=== PATIENT | female | born 1970 | race African-American/Black ===

== ENCOUNTER 2020-07-18 16:16 | Outpatient (REF) | payer MEDICARE, MEDICAID, SELFPAY ==
--- NOTE | 2020-07-18 16:20 | CT_ITS ---
EXAMINATION: CT MAXILLOFACIAL WITHOUT CONTRAST CLINICAL INFORMATION: Sinonasal polyp. COMPARISON: CT head from 03/18/2020. TECHNIQUE: Multidetector helical imaging was performed in the axial plane with generation of coronal and sagittal reformatted images. This CT examination was performed using dose optimization techniques as appropriate, variously including the following: *Automated exposure control. *Adjustment of mA and/or kV according to patient size (this includes techniques or standardized protocols for targeted exams where dose is matched to indication/reason for exam; i.e. extremities or head). *Use of iterative reconstruction technique. DLP: 80 mGy-cm FINDINGS: FRONTAL SINUSES AND DRAINAGE PATHWAYS: The frontal sinuses are clear. The frontoethmoidal recesses are patent. MAXILLARY SINUSES AND DRAINAGE PATHWAYS: Mild mucosal thickening of the paranasal sinuses. Small mucous retention cyst within the right maxillary sinus. The maxillary ostia and infundibula are patent. ETHMOID SINUSES: The ethmoid air cells are clear. The ethmoid roofs appear symmetric and intact. SPHENOID SINUS AND DRAINAGE PATHWAYS: The sphenoid sinus is clear. The sphenoethmoidal recesses are patent. NASAL PASSAGE: The nasal passages are clear. Mild leftward nasal septal deviation with slight spurring. ADDITIONAL RELEVANT FINDINGS: The lamina papyracea are intact. No demonstrated abnormalities of the orbits. The carotid canals are normally covered by bone. No significant maxillary periapical disease. Mild left worse than right degenerative arthropathy of the temporomandibular joints. The mastoid air cells and middle ear cavities remain well aerated. Limited evaluation of the intracranial structures without significant abnormalities. CT/CT sinus wo con IMPRESSION: Mild sinonasal mucosal disease. Mild leftward nasal septal deviation.
== END 2020-07-18 16:17 | disposition home or self-care (01) ==
LOC: HO.CT 16:16
PROVIDERS: PCP Hospitalist; Visit Provider Otolaryngology
DX: J33.9 Nasal polyp, unspecified (principal)
CPT/HCPCS: 70486

== ENCOUNTER 2021-03-20 00:35 | Emergency (ER) | payer MEDICARE, MEDICAID, SELFPAY | END 2021-03-20 01:29 | disposition left against medical advice (07) | PROVIDERS: Emergency Provider Emergency Medicine; PCP Hospitalist | DX: R42 Dizziness and giddiness (principal) ==

== ENCOUNTER 2021-03-24 19:16 | Emergency (ER) | payer MEDICARE, MEDICAID, SELFPAY ==
[2021-03-24 19:25] VITALS: BP 151/90; PULSE 90; RESP 16; O2SAT 100; BMI 25.7
--- NOTE | 2021-03-24 20:07 | PC.NURSE ---
PT INTERRUPTED RN WHILE TRIAGING ANOTHER PATIENT, SAID SHE WAS GOING TO LEAVE. CHARGE NURSE CALLED TO SPEAK TO PATIENT. PT BROUGHT TO TRIAGE TO REASSESS. NO CHANGES.
[2021-03-24 20:08] VITALS: BP 175/102; PULSE 90; RESP 16; O2SAT 100
--- NOTE | 2021-03-24 20:19 | PC.NURSE ---
SPOKE TO PATIENT AND FAMILY AT 20:00, PT MOTHER INSISTING THAT PT NEEDED TO COME BACK TO BE SEEN. COLEEN Gabriel DID UPDATED SET OF VITALS, AND NEURO CHECKS ALL WERE WNL. I INFORMED THEM IT WOULD TAKE A FEW MINUTES TO GET A ROOM READY. I WENT IN THE BACK TO MOVE SOME PATIENTS, WHEN I RETURNED TO THE APPROXIMATELY 15 MINUTES LATER TO BRING THE PATIENT IN, SHE AND HER FAMILY HAD LEFT.
== END 2021-03-24 20:22 | disposition left against medical advice (07) ==
PROVIDERS: Emergency Provider Emergency Medicine
DX: R22.0 Localized swelling, mass and lump, head (principal)
CPT/HCPCS: 99281; 99283